=== PATIENT | female | born 1960 | race Caucasian/White ===

== ENCOUNTER 2016-12-26 07:57 | Outpatient (CLI) | payer BC ==
[2016-06-25 14:58] VITALS: BP 86/54
[2016-12-26 08:59] LABS: eGFR (African) > 60; eGFR (Non-African) > 60
== END 2016-12-26 08:00 ==
LOC: LAB 07:57
PROVIDERS: ATTEND Physician Assistant
DX: E11.9 Type 2 diabetes mellitus without complications (principal); E78.2 Mixed hyperlipidemia; Z13.6 Encounter for screening for cardiovascular disorders
CPT/HCPCS: 36415; 80053; 80061; 83036